=== PATIENT | male | born 1995 | race Caucasian/White ===

== ENCOUNTER 2017-02-19 22:57 | Emergency (ER) | payer MEDICAID, OTHER ==
--- NOTE | 2017-02-20 00:09 | ERNOTE ---
Upper Extremity HPI - General Time Seen by Provider: 02/20/17 00:01 Source: patient Exam Limitations: no limitations - Immun/Allergies/Home Medications Immunizations: IMMUNIZATION HX Immunizations Up to Date Yes History of Influenza Vaccine No Hx Pneumococcal Vaccination No Allergies/Adverse Reactions: Allergies Allergy/AdvReac Type Severity Reaction Status Date / Time No Known Allergies Allergy Verified 02/19/17 23:07 Home Medications: HOME MEDICATIONS NK [No Home Medication] 02/19/17 [Last Taken Unknown] - History of Present Illness Narrative: pt was working on his truck when he sustained an abrasion to the dorsal aspect of his right middle digit he is here for an abrasion to his middle digit Review of Systems - Review of Systems Constitutional: Present: no symptoms reported EYE: Present: no symptoms reported ENT: Present: no symptoms reported Respiratory: Present: no symptoms reported Cardiology: Present: no symptoms reported Gastrointestinal/Abdominal: Present: no symptoms reported Genitourinary: Present: no symptoms reported Musculoskeletal: Present: See HPI - Patient's Past Medical History Patient History - Medical: No pertinent hx Patient History - Cardiac/Respiratory: No pertinent hx Patient History - Cancer: No Hx of Cancer Patient History - Surgical Procedures: No surgical history Patient History - Other: None - Social History Living Situations: home Psych History: No pertinent hx Smoking Status: Current every day smoker - Immunizations Immunizations Up to Date: Yes Hx Pneumococcal Vaccination: No History of Influenza Vaccine: No Physical Exam - Physical Exam General Appearance: Present: wd/wn, alert, no apparent distress Head Exam: Present: normal inspection, no evidence of injury Extremity Exam: Present: other - pt has a skin flap on the PIP joint of right middle digit. he has an abrasion ED Progress - Vital Signs Patient's Vital Signs:: I have reviewed the patient's vital signs. Vital Signs: Vital Signs 02/19/17 23:04 Temperature 37.1 C Pulse Rate 79 Respiratory 16 Rate Blood Pressure 132/71 O2 Sat by Pulse 98 Oximetry - Progress/Reassessment Chief Complaint: Hand Injury/Pain Plan - Plan Plan: has an abrasion with a skin tear, Will apply dressing and patient states that his Tetanus is up to date. we will clean the digit and dress it and give patient pain meds Departure Clinical Impression: Abrasion, finger without infection - Departure Disposition: Home self-care Condition: Good Instructions: Abrasion, [id number] Referrals: Donn Caputo MD [Primary Care Provider] -
[2017-02-20 00:31] VITALS: BP 126/80
== END 2017-02-20 00:15 | disposition home or self-care (01) ==
LOC: ER 22:57
PROC: 2W3JX1Z Immobilization of Right Finger using Splint (ICD-10-PCS; principal; 2017-02-19)
DX: S60.412A Abrasion of right middle finger, initial encounter (principal); F17.200 Nicotine dependence, unspecified, uncomplicated; W31.89XA Contact with other specified machinery, initial encounter